=== PATIENT | female | born 1950 | race Caucasian/White ===

== ENCOUNTER 2021-09-17 15:33 | Emergency (ER) | payer MEDICARE, SELFPAY ==
--- NOTE | ~2021-09-17 | XR_ITS ---
EXAMINATION: XR foot LT min 3V DATE: 09/17/2021 16:02 INDICATION: Left foot pain TECHNIQUE: Dorsoplantar, lateral, and 2 oblique views of the left foot were obtained. COMPARISON: None. FINDINGS: Bone alignment is normal. There is no fracture. 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 Mild osteoarthritis is noted in multiple interphalangeal joints. IMPRESSION: 1. No acute osseous abnormality. Reviewed, dictated and finalized at location A.
[2021-09-17 15:42] VITALS: BP 125/63; PULSE 85; RESP 18; TEMP 37.3; O2SAT 98
--- NOTE | 2021-09-17 15:43 | ED.LOWEXIN ---
HPI - Extremity Injury (Lower) General Chief Complaint: Extremity Injury, Lower Stated Complaint: Lt Foot Pain Time Seen by Provider: 09/17/21 15:43 Source: patient Mode of arrival: ambulatory Limitations: no limitations History of Present Illness HPI Narrative: 71-year-old female presents with pain to lateral aspect of left foot for 2 to 3 weeks. Reports that pain started hurting while she was walking down stairs at her sister's house. Reports that she put her foot down and felt a sharp pain. Reports that she had swelling and bruising for about a week but that has since resolved. Is still having intermittent pain to left foot, usually worse after busy days at work. 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 Reports that she has to carry bags up a flight of stairs full of clothes or shoes for donations. Patient is ambulatory with slight limp to left foot. All systems reviewed and negative except as noted above. Related Data Home Medications Medication Instructions Recorded Confirmed empagliflozin 25 mg tablet 1 tablet PO DAILY 09/17/21 09/17/21 (Jardiance) fluoxetine 20 mg capsule 1 cap PO DAILY 09/17/21 09/17/21 glimepiride 2 mg tablet 1 tablet PO DAILY 09/17/21 09/17/21 hydrochlorothiazide 25 mg tablet 1 tablet PO DAILY 09/17/21 09/17/21 insulin glargine 100 unit/mL (3 1 ea subcut DAILY 09/17/21 09/17/21 mL) subcutaneous pen (Lantus Solostar U-100 Insulin) levothyroxine 50 mcg tablet 1 tablet PO DAILY 09/17/21 09/17/21 (Euthyrox) metformin 500 mg tablet 1 tablet PO BID 09/17/21 09/17/21 pen needle, diabetic 32 gauge x 09/17/21 09/17/21 simvastatin 80 mg tablet 1 tablet PO DAILY 09/17/21 09/17/21 Allergies Allergy/AdvReac Type Severity Reaction Status Date / Time No Known Allergies Allergy Verified 09/17/21 15:34 Review of Systems Review of Systems: CONSTITUTIONAL: Denies fever, chills, or sweats. EYES: Denies visual changes, redness, or discharge. ENT: Denies rhinorrhea, congestion, sore throat, or otalgia. CARDIOVASCULAR: Denies chest pain, palpitations, or edema. RESPIRATORY: Denies cough or dyspnea. GASTROINTESTINAL: Denies abdominal pain, nausea, vomiting, or diarrhea. GENITOURINARY: Denies dysuria or hematuria. SKIN: Denies rash or itching. MUSCULOSKELETAL: Denies back pain, joint pain, or myalgia. Reports pain to lateral aspect of left foot. NEUROLOGIC: Denies headache, numbness, or weakness. PSYCHIATRIC: Denies anxiety or depression. All other systems reviewed are negative, except as documented in HPI. PMFSH Comments At time of signature, agree with nursing past medical, surgical, social and family history. There is no relevant family history pertinent to the presenting complaint. Exam Narrative: GENERAL: This is a well-nourished, well-developed patient, in no apparent distress. HEAD: normocephalic, atraumatic. EYES: PERRL. Sclera clear/white. Vision is grossly intact. EARS: External ears normal NOSE: External nose normal NECK: Neck supple, non-tender without lymphadenopathy, masses or thyromegaly. CARDIOVASCULAR: Regular rate and rhythm without murmurs, gallops, or rubs. RESPIRATORY: Clear to auscultation. Breath sounds equal bilaterally. No wheezes, rales, or rhonchi. SKIN: warm, Dry, intact with no suspicious lesions or rash, good texture and turgor. NEURO: awake, alert, and oriented to person, place and time. There were no obvious focal neurologic abnormalities. EXTREMITIES: Normal range of motion to all extremities. Tenderness to proximal aspect left fifth metatarsal. No bruising or swelling noted. Course Course Level of Care: Express Care Visit Vital Signs Vital signs: Vital Signs Temperature 37.3 C 09/17/21 15:42 Pulse Rate 85 09/17/21 15:42 Respiratory Rate 18 09/17/21 15:42 Blood Pressure 125/63 09/17/21 15:42 Pulse Oximetry 98 09/17/21 15:42 Oxygen Delivery Room Air 09/17/21 15:42 Temperature 37.3 C
== END 2021-09-17 16:38 | disposition home or self-care (01) ==
PROVIDERS: Emergency Provider Nurse Practitioner Family; PCP Family Medicine
DX: M79.672 Pain in left foot (principal); E78.00 Pure hypercholesterolemia, unspecified; E11.9 Type 2 diabetes mellitus without complications; E03.9 Hypothyroidism, unspecified
CPT/HCPCS: 73630; 99213; G0463

== ENCOUNTER 2022-04-06 11:19 | Emergency (ER) | payer MEDICARE, SELFPAY ==
[2022-04-06 11:29] VITALS: BP 125/63; PULSE 79; RESP 20; TEMP 36.1; O2SAT 98
--- NOTE | 2022-04-06 12:37 | ED.URI ---
HPI - URI/Sore Throat General Chief Complaint: Upper Respiratory Infection Stated Complaint: Cough,Runny Nose, Time Seen by Provider: 04/06/22 12:37 Source: patient, RN notes reviewed and old records reviewed Mode of arrival: ambulatory Limitations: no limitations History of Present Illness HPI Narrative: 72-year-old female presents to the [facility] with complaints of cough, laryngitis, sinus congestion, runny nose, generalized fatigue for over 2 weeks. Has been taking DayQuil and NyQuil. States the symptoms just are not getting any better. Has history of hypothyroidism and diabetes. Related Data Home Medications Medication Instructions Recorded Confirmed empagliflozin 25 mg tablet 1 tablet PO DAILY 09/17/21 04/06/22 (Jardiance) fluoxetine 20 mg capsule 1 cap PO DAILY 09/17/21 04/06/22 glimepiride 2 mg tablet 1 tablet PO DAILY 09/17/21 04/06/22 hydrochlorothiazide 25 mg tablet 1 tablet PO DAILY 09/17/21 04/06/22 insulin glargine 100 unit/mL (3 1 ea subcut DAILY 09/17/21 04/06/22 mL) subcutaneous pen (Lantus Solostar U-100 Insulin) levothyroxine 50 mcg tablet 1 tablet PO DAILY 09/17/21 04/06/22 (Euthyrox) metformin 500 mg tablet 1 tablet PO BID 09/17/21 04/06/22 simvastatin 80 mg tablet 1 tablet PO DAILY 09/17/21 04/06/22 Allergies Allergy/AdvReac Type Severity Reaction Status Date / Time No Known Allergies Allergy Verified 04/06/22 12:46 Review of Systems Review of Systems: All systems reviewed & are unremarkable except as noted in HPI and below Constitutional: Constitutional: Reports as per HPI and Reports fatigue Eyes: Eyes: Reports no additional eye complaints ENT: Reports as per HPI Cardiovascular: Cardiovascular: Reports no additional cardiovascular complaints, Denies chest pain and Denies dyspnea Respiratory: Respiratory: Reports no additional respiratory complaints, Denies chest congestion, Denies cough and Denies dyspnea Gastrointestinal: Gastrointestinal: Reports no additional gastrointestinal complaints, Denies abdominal pain, Denies nausea and Denies vomiting Musculoskeletal: Musculoskeletal: Reports no additional musculoskeletal complaints Integumentary/Breasts: Skin/Breast: Reports system reviewed and no additional complaints, except as docu Neurologic: Reports system reviewed and no additional complaints, except as documented Psychiatric: Psychiatric: Reports no additional psychiatric complaints Allergic/Immunologic: Allergic/Immunologic: Reports no additional allergic/immunologic complaints [facility] Past Medical History Medical History (Updated 04/06/22 @ 20:13 by Jaelyn Arriaga APRN) Diabetes Hypothyroidism Comments At the time of my signature, I reviewed and agree with the nursing past medical, surgical, social, and family history. There is no relevant family history pertinent to the patient complaint. Exam Const: General: cooperative, healthy appearing, comfortable, no acute distress, well developed, alert and well nourished Nutritional Appearance: well nourished and obese Orientation/consciousness: patient oriented x3 Limitations: no limitations HENMT: Head: normal to inspection Ears: hearing grossly normal bilaterally and external ears normal Face/Nose/Sinus: Normal external nose present, Normal nares present, Normal nasal mucous membranes and turbinates present and normal facial exam Face and sinus: normal facial exam Mouth: Yes Normal oral and palatal mucosa present, Yes lip normal and Yes moist mucous membranes Throat: posterior oropharynx normal and uvula midline Eyes: General: appearance normal, both eyes and all related structures Alignment and Position: alignment normal Periorbital: periorbital findings normal Conjunctivae: conjunctivae normal Pupils: Equal, round and reactive pupils present EOM: EOMs intact bilaterally Neck: Neck: normal visual inspection, full ROM, no lymphadenopathy and no meningeal signs Chest: Chest palpation & inspection: n
== END 2022-04-06 13:04 | disposition home or self-care (01) ==
PROVIDERS: Emergency Provider Nurse Practitioner; PCP Physician Assistant Medical
DX: J32.9 Chronic sinusitis, unspecified (principal); E11.9 Type 2 diabetes mellitus without complications; E03.9 Hypothyroidism, unspecified
CPT/HCPCS: 99213; G0463

== ENCOUNTER 2022-08-18 13:48 | Emergency (ER) | payer MEDICARE, SELFPAY ==
[2022-08-18 13:55] VITALS: BP 107/70; PULSE 91; RESP 18; TEMP 35.9; O2SAT 100
[2022-08-18 13:57] VITALS: BP 107/70; PULSE 91; RESP 18; TEMP 35.9; O2SAT 100
--- NOTE | 2022-08-18 14:03 | ED.SKABFB ---
HPI - Skin/Abscess/Foreign Bdy General Chief complaint: Skin/Abscess/Foreign Body Stated complaint: Rash Time Seen by Provider: 08/18/22 14:03 Source: patient Mode of arrival: ambulatory Limitations: no limitations History of Present Illness HPI narrative: 72-year-old female presents with complaint itchy, red rash to bilateral upper extremities for 3 days. Saw her primary care physician yesterday was given triamcinolone cream. Reports that she has applied it 4 times with no relief of symptoms. Reports that rash started 1 hour after getting a facial 2 days ago. No products applied to arms during facial. Reports she did touch bed linens with her arms but has no known allergies. Does not do any yd work. No new products, clothes at home. all systems reviewed and negative except as noted above. Related Data Home Medications Medication Instructions Recorded Confirmed fluoxetine 20 mg capsule 1 cap PO DAILY 09/17/21 08/18/22 hydrochlorothiazide 25 mg tablet 1 tablet PO DAILY 09/17/21 08/18/22 levothyroxine 50 mcg tablet 1 tablet PO DAILY 09/17/21 08/18/22 (Euthyrox) simvastatin 80 mg tablet 1 tablet PO DAILY 09/17/21 08/18/22 cholecalciferol (vitamin D3) 50 50 mcg PO DAILY 04/30/22 08/18/22 mcg (2,000 unit) capsule insulin glargine 100 unit/mL (3 14 unit subcut DAILY 04/30/22 08/18/22 mL) subcutaneous pen (Lantus Solostar U-100 Insulin) Allergies Allergy/AdvReac Type Severity Reaction Status Date / Time doxycycline AdvReac Mild Rash Verified 08/18/22 13:50 Review of Systems Review of Systems: CONSTITUTIONAL: Denies fever, chills, or sweats. EYES: Denies visual changes, redness, or discharge. ENT: Denies rhinorrhea, congestion, sore throat, or otalgia. CARDIOVASCULAR: Denies chest pain, palpitations, or edema. RESPIRATORY: Denies cough or dyspnea. GASTROINTESTINAL: Denies abdominal pain, nausea, vomiting, or diarrhea. GENITOURINARY: Denies dysuria or hematuria. SKIN: Reports itchy, red rash to bilateral upper arms. MUSCULOSKELETAL: Denies back pain, joint pain, or myalgia. NEUROLOGIC: Denies headache, numbness, or weakness. PSYCHIATRIC: Denies anxiety or depression. All other systems reviewed are negative, except as documented in HPI. [facility] Past Medical History Medical History (Updated 08/18/22 @ 14:13 by Bella Rand NP) Diabetes GERD (gastroesophageal reflux disease) Hyperlipidemia Hypertension Hypothyroidism Laryngitis PTSD (post-traumatic stress disorder) Surgical History Surgical History (Updated 04/30/22 @ 10:33 by Tess Temple [facility]) History of delivery History of discectomy History of partial hysterectomy Family History Family History (Updated 04/30/22 @ 10:35 by Tess Temple Seun) Father Hypertension Heart disease Mother Depression Diabetes mellitus Heart disease Alcoholism Sibling Alcoholism Asthma Diabetes mellitus Hypertension Depression Heart disease Grandparent Cancer Grandparent Asthma Social History Social History (Reviewed 06/30/22 @ 14:19 by Tess Temple [facility]) Smoking status: Never smoker Alcohol intake: never Substance use: never Substance use type: does not use Lack of Transportation: No Lack of Food: Never True Current Housing: I Have Housing Concerned About Future Housing: No Difficulty Paying Gas/Electric Bills: No Difficulty Paying for Meds: No Currently Unemployed: No Education: Master's Degree or Higher Difficulty w/ Childcare or Family Care: No Comments At time of signature, agree with nursing past medical, surgical, social and family history. There is no relevant family history pertinent to the presenting complaint. Exam Narrative: GENERAL: This is a well-nourished, well-developed patient, in no apparent distress. HEAD: normocephalic, atraumatic. EYES: PERRL. Sclera clear/white. Vision is grossly intact. EARS: External ears normal NOSE: External nose nor
== END 2022-08-18 14:15 | disposition home or self-care (01) ==
PROVIDERS: Emergency Provider Nurse Practitioner Family; PCP Nurse Practitioner Family
DX: L23.9 Allergic contact dermatitis, unspecified cause (principal); E11.9 Type 2 diabetes mellitus without complications; K21.9 Gastro-esophageal reflux disease without esophagitis; E78.5 Hyperlipidemia, unspecified; I10 Essential (primary) hypertension; E03.9 Hypothyroidism, unspecified; Z90.711 Acquired absence of uterus with remaining cervical stump
CPT/HCPCS: 99213; G0463

== ENCOUNTER 2023-05-05 15:13 | Emergency (ER) | payer MEDICARE, SELFPAY ==
[2023-05-05 15:27] VITALS: BP 131/59; PULSE 103; RESP 20; TEMP 36.9; O2SAT 100
--- NOTE | 2023-05-05 15:53 | ED.URI ---
HPI - URI/Sore Throat General Chief Complaint: Upper Respiratory Infection Stated Complaint: cold /flu like symptoms,rt eye redness Time Seen by Provider: 05/05/23 15:30 Source: patient Mode of arrival: ambulatory Limitations: no limitations History of Present Illness HPI Narrative: Thea is a 73-year-old female patient presenting to the clinic today with complaints of cough, head congestion, and postnasal drip. She reports this has been going on for 4 days. Woke up this morning and has redness to the right eye MD elicited complaint: sore throat and nasal congestion Related Data Home Medications Medication Instructions Recorded Confirmed cholecalciferol (vitamin D3) 50 50 mcg PO DAILY 04/30/22 10/28/22 mcg (2,000 unit) capsule triamcinolone acetonide 0.025 % 1 applic topical BID dermatitis 05/05/23 topical ointment Allergies Allergy/AdvReac Type Severity Reaction Status Date / Time doxycycline AdvReac Mild Rash Verified 05/05/23 15:30 Review of Systems Review of Systems: Pertinent positives per HPI. Patient denies any fever, chills, rash, headache, visual changes, dizziness, shortness of breath, chest pain, palpitations, nausea, vomiting, diarrhea, constipation, abdominal pain, or any urinary issues. [facility] Past Medical History Medical History Diabetes GERD (gastroesophageal reflux disease) Hyperlipidemia Hypertension Hypothyroidism Laryngitis PTSD (post-traumatic stress disorder) Surgical History Surgical History History of delivery History of discectomy History of partial hysterectomy Family History Family History Father Hypertension Heart disease Mother Depression Diabetes mellitus Heart disease Alcoholism Sibling Alcoholism Asthma Diabetes mellitus Hypertension Depression Heart disease Grandparent Cancer Grandparent Asthma Social History Social History Smoking status: Never smoker Alcohol intake: never Substance use: never Substance use type: does not use Lack of Transportation: No Lack of Food: Never True Current Housing: I Have Housing Concerned About Future Housing: No Difficulty Paying Gas/Electric Bills: No Difficulty Paying for Meds: No Currently Unemployed: No Education: Master's Degree or Higher Difficulty w/ Childcare or Family Care: No Comments At the time of my signature, I reviewed and agree with the nursing past medical, surgical, social, and family history. There is no relevant family history pertinent to the patient complaint. Exam Narrative: General: Well-developed, well nourished, in no apparent distress Head: Normocephalic, atraumatic Eyes: Pupils equally round and reactive to light bilaterally, EOM intact, left sclera and conjunctive clear, right conjunctiva clear, subconjunctival hemorrhage to the lateral right eye not crossing the iris, no discharge, lids normal Ears: TMs intact and congested, ear canals clear, no drainage, grossly hearing normal. Nose: Nares patent, clear nasal discharge, moderate inflammation, no sinus tenderness. Mouth: Oral pharynx without lesions or masses, good dentition, MMM. Postnasal drip Neck: Supple, trachea midline, no enlargement of anterior or posterior cervical nodes, no thyroid masses or goiter palpable. Cardio: Regular rate and rhythm, s1 and s2 normal, no murmur appreciated. Resp: Clear to auscultation bilaterally, no rhonchi, rales, wheezing or rubs Course Course Emergency Course: Portions of this record may have been created with voice recognition software. Level of Care: Express Care Visit Vital Signs Vital signs: Vital Signs Temperature 36.9 C 05/05/23 15:27 Pulse Rate 103 H 05/05/23 15:27 Respiratory
== END 2023-05-05 16:00 | disposition home or self-care (01) ==
PROVIDERS: Emergency Provider Nurse Practitioner Family; PCP Nurse Practitioner Family
DX: J06.9 Acute upper respiratory infection, unspecified (principal); B34.9 Viral infection, unspecified; H11.31 Conjunctival hemorrhage, right eye; Z20.822 Contact with and (suspected) exposure to COVID-19; E11.9 Type 2 diabetes mellitus without complications; K21.9 Gastro-esophageal reflux disease without esophagitis; E78.5 Hyperlipidemia, unspecified; E03.9 Hypothyroidism, unspecified
CPT/HCPCS: 87426; 99213; G0463